=== PATIENT | female | born 1950 | race Caucasian/White ===

== ENCOUNTER 2017-03-02 15:02 | Inpatient (IN) | payer OTHER ==
[2017-03-02 17:51] LABS: BASOPHILS # (AUTO) 0.1 X10^3/uL (0.0-0.1); BASOPHILS % (AUTO) 0.8 % (0.2-1.0); EOSINOPHILS # (AUTO) 0.3 x10^3/uL (0.0-0.2); EOSINOPHILS % (AUTO) 3.5 % (0.9-2.9); LYMPHOCYTES # (AUTO) 1.9 X10^3/uL (1.3-2.9); LYMPHOCYTES % (AUTO) 21.3 % (21.0-51.0); MEAN CORPUSCULAR HEMOGLOBIN 31.1 pg (27.0-34.0); MEAN CORPUSCULAR VOLUME 88.7 fL (80.0-100.0); MEAN PLATELET VOLUME 8.9 fL (7.4-11.0); MONOCYTES % (AUTO) 11.5 % (0.0-13.0); NEUTROPHILS # (AUTO) 5.5 x10^3/uL (2.2-4.8); NEUTROPHILS % (AUTO) 62.9 % (42.0-75.0); PLATELET COUNT 135 X10^3/uL (150.0-450.0); RED CELL DISTRIBUTION WIDTH 12.8 % (11.6-16.5); WHITE BLOOD COUNT 8.7 X10^3/uL (3.6-10.0)
[2017-03-02 18:06] LABS: ALANINE AMINOTRANSFERASE 59 Units/L (12-78); ALBUMIN 3.9 g/dL (3.4-5.0); ALKALINE PHOSPHATASE 75 Units/L (46-116); ASPARTATE AMINO TRANSFERASE 37 Units/L (15-37); BLOOD UREA NITROGEN 13 mg/dL (7-18); CALCIUM 8.9 mg/dL (8.5-10.1); CARBON DIOXIDE 23.2 mmol/L (21-32); CHLORIDE 100 mmol/L (98-107); COR NA(FOR HYPERGLY) 140 mmol/L (136-145); CREATININE 0.99 mg/dL (0.55-1.02); SODIUM 136 mmol/L (136-145); TOTAL PROTEIN 7.7 g/dL (6.4-8.2); eGFR BLACK RACES > 60 (>60); eGFR NON BLACK RACES 60 (>60)
[2017-03-02] MEDS ORDERED: DUONEB 0.5 MG/3 MG ONE (18:10)
[2017-03-02] MEDS ORDERED: SALINE 3% 15 ML NEB TX ONE (18:13)
[2017-03-02] MEDS ORDERED: SALINE 3% 15 ML NEB TX NEB ONE (18:15)
[2017-03-02] MEDS: LEVAQUIN PREMIX IV 750 MG 750 MG/150 ML BAG IV SCH (18:26)
[2017-03-02] MEDS: ROBITUSSIN DM PO SCH ×2 (18:27→21:37)
[2017-03-02] MEDS: NS 1/2 500 ML IV 500 ML IV SCH (18:27)
[2017-03-02 18:32] VITALS: BMI 31.1
--- NOTE | 2017-03-02 18:37 | RAD ---
History: Cough Study: PA and lateral chest Comparison: None Findings: The lungs are clear and the heart and mediastinum are unremarkable. There is no edema or ef fusion or congestion. No bony abnormality is suggested. Impression: Negative Reported By:
[2017-03-02] MEDS: DUONEB 0.5 MG/3 MG NEB SCH ×2 (19:00→21:20)
[2017-03-03] MEDS: DUONEB 0.5 MG/3 MG NEB SCH ×6 (01:03→21:14)
[2017-03-03 05:44] LABS: BASOPHILS % (AUTO) 0.4 % (0.2-1.0); EOSINOPHILS # (AUTO) 0.1 x10^3/uL (0.0-0.2); EOSINOPHILS % (AUTO) 2.3 % (0.9-2.9); HEMATOCRIT 36.7 % (36.0-47.0); HEMOGLOBIN 12.9 g/dL (12.0-16.0); LYMPHOCYTES # (AUTO) 1.6 X10^3/uL (1.3-2.9); LYMPHOCYTES % (AUTO) 32.7 % (21.0-51.0); MEAN CORPUSCULAR HEMOGLOBIN 31.2 pg (27.0-34.0); MEAN CORPUSCULAR HGB CONC 35.1 g/dL (33.0-35.0); MEAN CORPUSCULAR VOLUME 88.8 fL (80.0-100.0); MEAN PLATELET VOLUME 9.4 fL (7.4-11.0); MONOCYTES # (AUTO) 0.8 x10^3/uL (0.3-0.8); MONOCYTES % (AUTO) 15.8 % (0.0-13.0); NEUTROPHILS # (AUTO) 2.4 x10^3/uL (2.2-4.8); NEUTROPHILS % (AUTO) 48.8 % (42.0-75.0); PLATELET COUNT 108 X10^3/uL (150.0-450.0); RED BLOOD COUNT 4.14 X10^6/uL (3.5-5.4); RED CELL DISTRIBUTION WIDTH 12.9 % (11.6-16.5); WHITE BLOOD COUNT 4.9 X10^3/uL (3.6-10.0)
[2017-03-03 05:55] LABS: ALANINE AMINOTRANSFERASE 52 Units/L (12-78); ALBUMIN 3.5 g/dL (3.4-5.0); ALKALINE PHOSPHATASE 74 Units/L (46-116); ASPARTATE AMINO TRANSFERASE 33 Units/L (15-37); BLOOD UREA NITROGEN 13 mg/dL (7-18); CALCIUM 8.7 mg/dL (8.5-10.1); CARBON DIOXIDE 24.2 mmol/L (21-32); CHLORIDE 104 mmol/L (98-107); COR NA(FOR HYPERGLY) 141 mmol/L (136-145); CREATININE 0.87 mg/dL (0.55-1.02); SODIUM 139 mmol/L (136-145); eGFR BLACK RACES > 60 (>60); eGFR NON BLACK RACES > 60 (>60)
[2017-03-03] MEDS ORDERED: POTASSIUM CHL 60 MEQ/NS 0.45% 500 ML IV PRN (06:31)
[2017-03-03] MEDS ORDERED: POTASSIUM CHL 40 MEQ/NS 0.45% 500 ML IV PRN (06:31)
[2017-03-03] MEDS ORDERED: MAGNESIUM SULFATE 1 GM/100 mL PREMIX 1 GM/100 ML BAG IV PRN (06:31)
[2017-03-03] MEDS ORDERED: K-RIDER 10 MEQ/NS 100 ML 10 MEQ/100 ML BAG IV PRN (06:31)
[2017-03-03] MEDS ORDERED: POTASSIUM CHLORIDE LIQ 20 MEQ UDC PO PRN (06:31)
[2017-03-03] MEDS ORDERED: K-LYTE EFFERVESCENT PO PRN (06:31)
--- NOTE | 2017-03-03 07:26 | RAD ---
Examination: Portable AP chest History: Cough, pneumonia Comparison 03/02/2017 Findings: Continued normal transverse heart diameter with clear lungs and pleural spaces. Impression: No change; no acute disease demonstrated. Reported By:
[2017-03-03] MEDS: ROBITUSSIN DM PO SCH ×4 (08:58→20:20)
[2017-03-03] MEDS: NS 1/2 500 ML IV 500 ML IV SCH ×2 (08:58→23:28)
[2017-03-03] MEDS: LEVAQUIN PREMIX IV 750 MG 750 MG/150 ML BAG IV SCH (10:00)
--- NOTE | 2017-03-03 14:15 | CT ---
History: Headache and pneumonia. Study: CT sinus without contrast. Comparison: CT head dated July 25, 2015. Technique: Multiple contiguous axial images of the sinuses without contrast. Coronal/sagittal reforma ts were obtained. Findings: Moderate mucosal thickening of the ethmoidal air cells. Mild mucosal thickening of the bila teral frontal sinuses. Small mucous retention cyst within the left sphenoid sinus. Remaining visualiz ed paranasal sinuses and mastoid air cells are clear. There is no nasal septum deviation. Obstruction of the right ostiomeatal unit and partial obstruction of the left ostiomeatal unit. Partial obstruct ion of the left frontoethmoidal recess. The right frontoethmoidal recess and bilateral sphenoethmoida l recesses are patent. The visualized lamina papyracea appear intact. The orbits are unremarkable. Th e visualized bones and surrounding soft tissues are unremarkable. Impression: Sinus disease as above. Reported By:
[2017-03-03] MEDS: FLONASE NASAL SPRAY ENOSTRIL SCH (16:02)
[2017-03-03] MEDS: ASTELIN NASAL SPRAY ENOSTRIL SCH ×2 (16:32→20:19)
[2017-03-03] MEDS: MAG-OX TAB PO PRN (19:27)
[2017-03-03] MEDS: TUSSIONEX PENNKINETIC SUSP PO PRN (20:17)
[2017-03-04] MEDS ORDERED: TYLENOL 325 MG TAB PO PRN (00:14)
[2017-03-04] MEDS ORDERED: TYLENOL 325 MG TAB PO ONE (00:41)
[2017-03-04] MEDS: DUONEB 0.5 MG/3 MG NEB SCH ×6 (01:25→21:20)
[2017-03-04 05:39] LABS: BASOPHILS % (AUTO) 0.5 % (0.2-1.0); EOSINOPHILS # (AUTO) 0.2 x10^3/uL (0.0-0.2); EOSINOPHILS % (AUTO) 2.7 % (0.9-2.9); HEMATOCRIT 38.3 % (36.0-47.0); HEMOGLOBIN 13.5 g/dL (12.0-16.0); LYMPHOCYTES # (AUTO) 1.7 X10^3/uL (1.3-2.9); LYMPHOCYTES % (AUTO) 20.4 % (21.0-51.0); MEAN CORPUSCULAR HEMOGLOBIN 31.2 pg (27.0-34.0); MEAN CORPUSCULAR HGB CONC 35.3 g/dL (33.0-35.0); MEAN CORPUSCULAR VOLUME 88.4 fL (80.0-100.0); MEAN PLATELET VOLUME 9.4 fL (7.4-11.0); MONOCYTES # (AUTO) 0.8 x10^3/uL (0.3-0.8); MONOCYTES % (AUTO) 9.6 % (0.0-13.0); NEUTROPHILS # (AUTO) 5.7 x10^3/uL (2.2-4.8); NEUTROPHILS % (AUTO) 66.8 % (42.0-75.0); PLATELET COUNT 121 X10^3/uL (150.0-450.0); RED BLOOD COUNT 4.33 X10^6/uL (3.5-5.4); RED CELL DISTRIBUTION WIDTH 13.1 % (11.6-16.5); WHITE BLOOD COUNT 8.5 X10^3/uL (3.6-10.0)
[2017-03-04 05:43] LABS: ALANINE AMINOTRANSFERASE 51 Units/L (12-78); ALBUMIN 3.7 g/dL (3.4-5.0); ALKALINE PHOSPHATASE 58 Units/L (46-116); ASPARTATE AMINO TRANSFERASE 34 Units/L (15-37); BLOOD UREA NITROGEN 13 mg/dL (7-18); CARBON DIOXIDE 23.7 mmol/L (21-32); CHLORIDE 102 mmol/L (98-107); COR NA(FOR HYPERGLY) 140 mmol/L (136-145); SODIUM 137 mmol/L (136-145); TOTAL PROTEIN 7.5 g/dL (6.4-8.2)
[2017-03-04 05:55] LABS: CALCIUM 8.7 mg/dL (8.5-10.1); eGFR BLACK RACES > 60 (>60); eGFR NON BLACK RACES > 60 (>60)
--- NOTE | 2017-03-04 06:59 | RAD ---
HISTORY: Follow-up pneumonia Study: Chest AP portable Comparison: 03/03/2017 Findings: The the heart is within normal limits in size. The marce are normal. The lungs are free of acute alveo lar infiltrates. There is minimal subsegmental atelectasis in the right lung base. No pleural effusio ns are identified. The bony thorax is unremarkable. IMPRESSION: Minimal subsegmental atelectasis right lung base Reported By:
[2017-03-04] MEDS: LEVAQUIN PREMIX IV 750 MG 750 MG/150 ML BAG IV SCH (08:11)
[2017-03-04] MEDS: ROBITUSSIN DM PO SCH ×5 (08:12→21:36)
[2017-03-04] MEDS: TUSSIONEX PENNKINETIC SUSP PO PRN ×2 (08:16→21:35)
[2017-03-04] MEDS: FLONASE NASAL SPRAY ENOSTRIL SCH ×2 (09:19→13:38)
[2017-03-04] MEDS: ASTELIN NASAL SPRAY ENOSTRIL SCH ×2 (09:19→21:35)
[2017-03-04] MEDS ORDERED: GLUCOPHAGE ONE (12:43)
[2017-03-04] MEDS: GLUCOPHAGE PO SCH (13:12)
[2017-03-04] MEDS: ZESTRIL TAB 5 MG PO SCH (13:12)
[2017-03-04] MEDS: CELEXA PO SCH (13:12)
[2017-03-04] MEDS: XANAX PO PRN (13:13)
[2017-03-04] MEDS: MOBIC TAB 15 MG PO SCH (13:17)
[2017-03-04] MEDS: SINGULAIR TAB 10 MG PO SCH (13:17)
[2017-03-04] MEDS: NS 1/2 500 ML IV 500 ML IV SCH (13:20)
[2017-03-04] MEDS ORDERED: PATIENT'S HOME MEDICATION (Levocetirizine Dihydrochloride [Levocetirizine Dihydrochloride] PO SCH (21:00)
[2017-03-04] MEDS: ZANAFLEX PO SCH (21:35)
[2017-03-04] MEDS: MAG-OX TAB PO PRN (21:35)
--- NOTE | 2017-03-04 21:54 | PCM.PROG ---
Progress Note - Progress Note for Day of Date: 03/04/17 - Subjective Subjective: WAS ADMITTED ON 03/02/2017 FOR BRONCHOPNEUMONISHA. A SINUS CT WAS OBTAINED ON 03/03/2017 AND REPORTED MODERATE MUCOSAL THICKENING OF THE ETHMOIDAL AIR CELLS. MILD MUCOSAL THICKENING OF THE BILATERAL FRONTAL SINUSES. SMALL MUCOUS RETENTION CYST WITHIN THE LEFT SPHENOID SINUS. OBSTRUCTION OF THE RIGHT OSTIOMEATAL UNIT AND PARTIAL OBSTRUCTION OF THE LEFT OSTIOMEATAL UNIT. PARTIAL OBSTRUCTION OF THE LEFT FRONTOETHMOIDAL RECESS. SHE WAS STARTED ON FLONASE AND ASTELIN NASAL SPRAYS YESTERDAY. TODAY, PATIENT IS ALERT AND ORIENTED, SITTING UP IN BED ON MORNING ROUNDS. SHE CONTINUES WITH COUGH, NASAL CONGESTION, AND SHORTNESS OF BREATH. ON EXAMINATION, HEART IS REGULAR IN RATE AND RHYTHM. BILATERAL LUNGS ARE NOTED WITH SCATTERED WHEEZING THROUGHOUT. SHE IS CURRENTLY UTILIZING OXYGEN VIA NASAL CANNULA AT 2L/MIN. ABDOMEN IS ROUND, SOFT, AND NON-TENDER WITH NORMAL BOWEL SOUNDS NOTED IN ALL QUADRANTS. PATIENT RAN A FEVER THROUGHOUT THE NIGHT. TEMPERATURE SPIKED TO 101.4 AT MIDNIGHT. VITALS THIS MORNING ARE 99.3-94-20-98%-128/57. LABS WERE OBTAINED THIS MORNING. ABNORMAL LAB VALUES INCLUDE THE FOLLOWING: GLUCOSE 212, MAGNESIUM 1.6. SPUTUM AND BLOOD CULTURES ARE PENDING. A CHEST XRAY WAS OBTAINED THIS MORNING AND REPORTS MINIMAL SUBSEGMENTAL ATELECTASIS RIGHT LUNG BASE. SHE IS CURRENTLY RECEIVING IV ANTIBIOTICS AND RESPIRATORY TREATMENTS. WE WILL CONTINUE WITH CURRENT PLAN OF CARE TODAY. OTHERWISE, WE WILL FOLLOW UP WITH AM LABS AND CONTINUE TO MONITOR PATIENT. - Past Medical Family Social History Past Med/Fam/Surg Hx: No changes since H&P Allergies: Allergies acetaminophen [From Tylenol] Allergy (Verified 03/04/17 00:46) aspirin Allergy (Verified 03/02/17 16:20) NSAIDS (Non-Steroidal Anti-Inflamma Allergy (Verified 03/02/17 16:20) - Review of Systems ROS: No change since H&P - Vital Signs and I&O's Vital Signs: Temperature 98.6 F Pulse Rate [Left Brachial] 91 Pulse Rate [Right Brachial] 94 Pulse Rate 90 Respiratory Rate 20 Blood Pressure [Left Arm] 123/56 Blood Pressure [Right Arm] 133/61 Blood Pressure 182/95 O2 Sat by Pulse Oximetry 96 Intake and Output: Intake & Output 0103/03/17 03/04/17 03/05/17 11:59 11:59 11:59 11:59 Intake Total 849 3175 1610 Balance 849 3175 1610 - Physical Exam Oriented: Normal Eyes: Normal Ear: Normal Nose: Other (NASAL CONGESTION ) Throat: Normal Respiratory: Right, Left, Generalized, Wheezes Cardiovascular: Normal : Normal Auscultation: Bowel Sounds: Normal Palpation: Normal Tenderness: Normal Skin: Normal Musculoskeletal: Normal Psychiatric: Normal Mood Description: Calm Affect: Normal Speech Pattern: Clear, Appropriate - Laboratory and Diagnostics Result Diagrams: 03/04/17 04:45 03/04/17 04:45 Labs: 03/02/17 17:46 Blood Blood Culture - Preliminary 03/02/17 17:41 Blood Blood Culture - Preliminary 03/02/17 19:33 Sputum - Expectorated Sputum Sputum Culture - Preliminary 03/02/17 19:33 Sputum - Expectorated Sputum - Final Laboratory WBC 8.5 X10^3/uL (3.6-10.0) 03/04/17 04:45 RBC 4.33 X10^6/uL (3.5-5.4) 03/04/17 04:45 Hgb 13.5 g/dL (12.0-16.0) 03/04/17 04:45 Hct 38.3 % (36.0-47.0) 03/04/17 04:45 MCV 88.4 fL (80.0-100.0) 03/04/17 04:45 MCH 31.2 pg (27.0-34.0) 03/04/17 04:45 MCHC 35.3 g/dL (33.0-35.0) H 03/04/17 04:45 RDW 13.1 % (11.6-16.5) 03/04/17 04:45 Plt Count 121 X10^3/uL (150.0-450.0) L 03/04/17 04:45 MPV 9.4 fL (7.4-11.0) 03/04/17 04:45 Neut % 66.8 % (42.0-75.0) 03/04/17 04:45 Lymph % 20.4 % (21.0-51.0) L 03/04/17 04:45 [place] % 9.6 % (0.0-13.0) 03/04/17 04:45 Eos % 2.7 % (0.9-2.9) 03/04/17 04:45 Baso % 0.5 % (0.2-1.0) 03/04/17 04:45 Neut # 5.7 x10^3/uL (2.2-4.8) H 03/04/17 04:45 Lymph # 1.7 X10^3/uL (1.3-2.9) 03/04/17 04:45 [place] # 0.8 x10^3/uL (0.3-0.8) 03/04/17 04:45 Eos # 0.2 x10^3/uL (0.0-0.2) 03/04/17 04:45 Baso # 0.0 X10^3/uL (0.0-0.1) 03/04/17 04:45 Absolute Nucleated RBC 0.0 /100WBC 03/04/17 04:45 Sodium 137 mmol/L (136-145) 03/04/17 04:45 Corrected Sodium 140 mmol/L (136-145) 03/04/17 04:45 Potassium 4.5 mmol/L (3.5-5.1) 03/04/17 04:45 Chloride 102 mmol/L (98-107) 03/04/17 04:45 Carbon Dioxide 23.7 mmol/L (21-32) 03/04/17 04:45 BUN 13 mg/dL (7-18) 03/04/17 04:45 Creatinine 0.90 mg/dL (0.55-1.02) 03/04/17 04:45 Est GFR (MDRD) Af Amer > 60 (>60) 03/04/17 04:45 Est GFR (MDRD) Non-Af > 60 (>60) 03/04/17 04:45 Glucose 212 mg/dL (65-99) H 03/04/17 04:45 POC Glucose (mg/dL) 142 mg/dL (65-99) H 03/04/17 20:03 Calcium 8.7 mg/dL (8.5-10.1) 03/04/17 04:45 Corrected Calcium TNP 03/04/17 04:45 Magnesium 1.6 mg/dL (1.7-2.9) L 03/04/17 04:45 Total Bilirubin 0.50 mg/dL (0.2-1.0) 03/04/17 04:45 AST 34 Units/L (15-37) 03/04/17 04:45 ALT 51 Units/L (12-78) 03/04/17 04:45 Alkaline Phosphatase 58 Units/L (46-116) 03/04/17 04:45 Total Protein 7.5 g/dL (6.4-8.2) 03/04/17 04:45 Albumin 3.7 g/dL (3.4-5.0) 03/04/17 04:45 Globulin 3.8 g/dL (2.5-4.5) 03/04/17 04:45 Albumin/Globulin Ratio 1.0 Ratio (1.1-2.1) L 03/04/17 04:45 - Plan (1) Bronchopneumonia Status: Acute Plan: CONTINUE PNEUMONIA PROTOCOL, CONTINUE LEVAQUIN AND RESPIRATORY TX, CONTINUE TO MONITOR LABS AND CHEST XRAY (2) Sinus disease Status: Acute Plan: CONTINUE ASTELIN AND FLONASE NASAL SPRAY, CONTINUE LEVAQUIN 750MG IV DAILY , CONTINUE TO MONITOR
[2017-03-05] MEDS: DUONEB 0.5 MG/3 MG NEB SCH ×6 (01:51→20:02)
[2017-03-05 05:41] LABS: BASOPHILS % (AUTO) 0.5 % (0.2-1.0); EOSINOPHILS # (AUTO) 0.3 x10^3/uL (0.0-0.2); EOSINOPHILS % (AUTO) 5.6 % (0.9-2.9); HEMATOCRIT 35.9 % (36.0-47.0); HEMOGLOBIN 12.4 g/dL (12.0-16.0); LYMPHOCYTES # (AUTO) 2.2 X10^3/uL (1.3-2.9); LYMPHOCYTES % (AUTO) 37.4 % (21.0-51.0); MEAN CORPUSCULAR HEMOGLOBIN 30.7 pg (27.0-34.0); MEAN CORPUSCULAR HGB CONC 34.6 g/dL (33.0-35.0); MEAN CORPUSCULAR VOLUME 88.8 fL (80.0-100.0); MEAN PLATELET VOLUME 9.6 fL (7.4-11.0); MONOCYTES # (AUTO) 0.7 x10^3/uL (0.3-0.8); MONOCYTES % (AUTO) 12.9 % (0.0-13.0); NEUTROPHILS # (AUTO) 2.5 x10^3/uL (2.2-4.8); NEUTROPHILS % (AUTO) 43.6 % (42.0-75.0); PLATELET COUNT 108 X10^3/uL (150.0-450.0); RED BLOOD COUNT 4.04 X10^6/uL (3.5-5.4); RED CELL DISTRIBUTION WIDTH 13.1 % (11.6-16.5); WHITE BLOOD COUNT 5.8 X10^3/uL (3.6-10.0)
[2017-03-05] MEDS: NS 1/2 500 ML IV 500 ML IV SCH ×3 (05:51→19:26)
[2017-03-05 06:04] LABS: ALANINE AMINOTRANSFERASE 48 Units/L (12-78); ALBUMIN 3.3 g/dL (3.4-5.0); ALKALINE PHOSPHATASE 55 Units/L (46-116); ASPARTATE AMINO TRANSFERASE 36 Units/L (15-37); BLOOD UREA NITROGEN 16 mg/dL (7-18); CALCIUM 8.8 mg/dL (8.5-10.1); CARBON DIOXIDE 26.1 mmol/L (21-32); CHLORIDE 102 mmol/L (98-107); COR CA(FOR HYPOALB) 9.4 mg/dL (8.5-10.1); COR NA(FOR HYPERGLY) 138 mmol/L (136-145); CREATININE 0.81 mg/dL (0.55-1.02); SODIUM 137 mmol/L (136-145); TOTAL PROTEIN 6.7 g/dL (6.4-8.2); eGFR BLACK RACES > 60 (>60); eGFR NON BLACK RACES > 60 (>60)
[2017-03-05 08:08] LABS: BILIRUBIN,URINE NEGATIVE (NEGATIVE); BLOOD/HEMOGLOBIN,URINE NEGATIVE (NEGATIVE); GLUCOSE, URINE NEGATIVE (NEGATIVE); KETONES,URINE NEGATIVE (NEGATIVE); LEUKOCYTE ESTERASE ,URINE 1+ (NEGATIVE); NITRITES,URINE NEGATIVE (NEGATIVE); PROTEIN,URINE NEGATIVE (NEGATIVE); UROBILINOGEN,URINE NORMAL (NORMAL)
[2017-03-05 08:27] LABS: APPEARANCE,URINE CLEAR (CLEAR); BACTERIA,URINE NEGATIVE /HPF (NEGATIVE); COLOR,URINE YELLOW (YELLOW); RBC,URINE NEG /HPF (NEGATIVE); SQUAMOUS EPITHELIAL CELL,UR NEGATIVE /HPF (NEGATIVE)
[2017-03-05] MEDS ORDERED: GLUCOPHAGE ONE (09:04)
[2017-03-05] MEDS ORDERED: ASTELIN NASAL SPRAY ENOSTRIL ONE (09:06)
[2017-03-05] MEDS: ROBITUSSIN DM PO SCH ×4 (09:13→21:15)
[2017-03-05] MEDS: FLONASE NASAL SPRAY ENOSTRIL SCH (09:13)
[2017-03-05] MEDS: ASTELIN NASAL SPRAY ENOSTRIL SCH ×2 (09:13→21:14)
[2017-03-05] MEDS: CELEXA PO SCH (09:14)
[2017-03-05] MEDS: MOBIC TAB 15 MG PO SCH (09:14)
[2017-03-05] MEDS: SINGULAIR TAB 10 MG PO SCH (09:14)
[2017-03-05] MEDS: GLUCOPHAGE PO SCH (09:14)
[2017-03-05] MEDS: LEVAQUIN PREMIX IV 750 MG 750 MG/150 ML BAG IV SCH (09:14)
[2017-03-05] MEDS: ZESTRIL TAB 5 MG PO SCH (09:14)
[2017-03-05] MEDS: TUSSIONEX PENNKINETIC SUSP PO PRN ×2 (09:20→21:14)
[2017-03-05] MEDS: SNACK - Diabetic Appropriate PO SCH ×2 (10:47→21:15)
--- NOTE | 2017-03-05 11:10 | RAD ---
HISTORY: Pneumonia. Cough. Study: PA and lateral chest Comparison: 03/04/2017 Findings: Low volume inspiration is noted. Minimal subsegmental atelectasis/infiltrate is present in the right lung. Otherwise the heart, lungs, mediastinum and bony structures are normal for the patient's age. IMPRESSION: 1. Minimal subsegmental atelectasis/infiltrate in the right lung base. Reported By:
[2017-03-05] MEDS: XANAX PO PRN (21:13)
[2017-03-05] MEDS: ZANAFLEX PO SCH (21:13)
[2017-03-06] MEDS: DUONEB 0.5 MG/3 MG NEB SCH ×6 (00:56→20:23)
--- NOTE | 2017-03-06 01:11 | PCM.PROG ---
Progress Note - Progress Note for Day of Date: 03/05/17 - Subjective Subjective: WAS ADMITTED ON 03/02/2017 FOR BRONCHOPNEUMONIA. SHE WAS FOUND TO HAVE SINUS DISEASE. SHE WAS STARTED ON FLONASE AND ASTELIN NASAL SPRAYS ON THURSDAY. TODAY, PATIENT IS ALERT AND ORIENTED, SITTING UP IN BED ON MORNING ROUNDS. SHE CONTINUES WITH PERSISTENT COUGH, NASAL CONGESTION, AND SHORTNESS OF BREATH. ON EXAMINATION, HEART IS REGULAR IN RATE AND RHYTHM. BILATERAL LUNGS CONTINUE WITH SCATTERED WHEEZING THROUGHOUT. SHE IS CURRENTLY UTILIZING OXYGEN VIA NASAL CANNULA AT 2L/MIN. ABDOMEN IS ROUND, SOFT, AND NON- TENDER WITH NORMAL BOWEL SOUNDS NOTED IN ALL QUADRANTS. SHE HAS BEEN AFEBRILE THROUGHOUT THE NIGHT. VITALS THIS MORNING ARE 98.5-77-20-96%-129/60. LABS WERE OBTAINED THIS MORNING. ABNORMAL LAB VALUES INCLUDE THE FOLLOWING: HCT 35.9, GLUCOSE 151, ALBUMIN 3.3. SPUTUM AND BLOOD CULTURES ARE PENDING. A CHEST XRAY WAS OBTAINED THIS MORNING AND REPORTS MINIMAL SUBSEGMENTAL ATELECTASIS/ INFILTRATE IN THE RIGHT LUNG BASE. SHE CONTINUES TO RECEIVE IV ANTIBIOTICS AND RESPIRATORY TREATMENTS. WE WILL CONTINUE WITH CURRENT PLAN OF CARE TODAY. OTHERWISE, WE WILL FOLLOW UP WITH AM LABS AND CONTINUE TO MONITOR PATIENT. - Past Medical Family Social History Past Med/Fam/Surg Hx: No changes since H&P Allergies: Allergies acetaminophen [From Tylenol] Allergy (Verified 03/04/17 00:46) aspirin Allergy (Verified 03/02/17 16:20) NSAIDS (Non-Steroidal Anti-Inflamma Allergy (Verified 03/02/17 16:20) - Review of Systems ROS: No change since H&P - Vital Signs and I&O's Vital Signs: Temperature 97.8 F Pulse Rate [Left Brachial] 74 Pulse Rate [Right Brachial] 94 Pulse Rate 68 Respiratory Rate 18 Blood Pressure [Left Arm] 112/52 Blood Pressure [Right Arm] 142/71 Blood Pressure 182/95 O2 Sat by Pulse Oximetry 95 Intake and Output: Intake & Output 03/03/17 03/04/17 03/05/17 03/06/17 11:59 11:59 11:59 11:59 Intake Total 849 3175 3110 1887 Output Total 1000 Balance 849 3175 3110 887 - Physical Exam Oriented: Normal Eyes: Normal Ear: Normal Nose: Other (NASAL CONGESTION ) Throat: Normal Respiratory: Right, Left, Generalized, Wheezes Cardiovascular: Normal : Normal Auscultation: Bowel Sounds: Normal Palpation: Normal Tenderness: Normal Skin: Normal Musculoskeletal: Normal Psychiatric: Normal Mood Description: Calm Affect: Normal Speech Pattern: Clear, Appropriate - Laboratory and Diagnostics Result Diagrams: 03/05/17 04:50 03/05/17 04:50 Labs: 03/05/17 09:13 Sputum - Expectorated Sputum - Final 03/02/17 19:33 Sputum - Expectorated Sputum Sputum Culture - Final 03/02/17 19:33 Sputum - Expectorated Sputum - Final 03/02/17 17:46 Blood Blood Culture - Preliminary 03/02/17 17:41 Blood Blood Culture - Preliminary Laboratory WBC 5.8 X10^3/uL (3.6-10.0) 03/05/17 04:50 RBC 4.04 X10^6/uL (3.5-5.4) 03/05/17 04:50 Hgb 12.4 g/dL (12.0-16.0) 03/05/17 04:50 Hct 35.9 % (36.0-47.0) L 03/05/17 04:50 MCV 88.8 fL (80.0-100.0) 03/05/17 04:50 MCH 30.7 pg (27.0-34.0) 03/05/17 04:50 MCHC 34.6 g/dL (33.0-35.0) 03/05/17 04:50 RDW 13.1 % (11.6-16.5) 03/05/17 04:50 Plt Count 108 X10^3/uL (150.0-450.0) L 03/05/17 04:50 MPV 9.6 fL (7.4-11.0) 03/05/17 04:50 Neut % 43.6 % (42.0-75.0) 03/05/17 04:50 Lymph % 37.4 % (21.0-51.0) 03/05/17 04:50 [place] % 12.9 % (0.0-13.0) 03/05/17 04:50 Eos % 5.6 % (0.9-2.9) H 03/05/17 04:50 Baso % 0.5 % (0.2-1.0) 03/05/17 04:50 Neut # 2.5 x10^3/uL (2.2-4.8) 03/05/17 04:50 Lymph # 2.2 X10^3/uL (1.3-2.9) 03/05/17 04:50 [place] # 0.7 x10^3/uL (0.3-0.8) 03/05/17 04:50 Eos # 0.3 x10^3/uL (0.0-0.2) H 03/05/17 04:50 Baso # 0.0 X10^3/uL (0.0-0.1) 03/05/17 04:50 Absolute Nucleated RBC 0.0 /100WBC 03/05/17 04:50 Sodium 137 mmol/L (136-145) 03/05/17 04:50 Corrected Sodium 138 mmol/L (136-145) 03/05/17 04:50 Potassium 3.9 mmol/L (3.5-5.1) 03/05/17 04:50 Chloride 102 mmol/L (98-107) 03/05/17 04:50 Carbon Dioxide 26.1 mmol/L (21-32) 03/05/17 04:50 BUN 16 mg/dL (7-18) 03/05/17 04:50 Creatinine 0.81 mg/dL (0.55-1.02) 03/05/17 04:50 Est GFR (MDRD) Af Amer > 60 (>60) 03/05/17 04:50 Est GFR (MDRD) Non-Af > 60 (>60) 03/05/17 04:50 Glucose 151 mg/dL (65-99) H 03/05/17 04:50 POC Glucose (mg/dL) 159 mg/dL (65-99) H 03/05/17 19:50 Lactic Acid 1.3 mmol/L (0.4-2.0) 03/05/17 07:45 Calcium 8.8 mg/dL (8.5-10.1) 03/05/17 04:50 Corrected Calcium 9.4 mg/dL (8.5-10.1) 03/05/17 04:50 Magnesium 1.9 mg/dL (1.7-2.9) 03/05/17 04:50 Total Bilirubin 0.50 mg/dL (0.2-1.0) 03/05/17 04:50 AST 36 Units/L (15-37) 03/05/17 04:50 ALT 48 Units/L (12-78) 03/05/17 04:50 Alkaline Phosphatase 55 Units/L (46-116) 03/05/17 04:50 Total Protein 6.7 g/dL (6.4-8.2) 03/05/17 04:50 Albumin 3.3 g/dL (3.4-5.0) L 03/05/17 04:50 Globulin 3.4 g/dL (2.5-4.5) 03/05/17 04:50 Albumin/Globulin Ratio 1.0 Ratio (1.1-2.1) L 03/05/17 04:50 Specimen Type Clean catch urine 03/05/17 07:59 Urine Color Yellow (YELLOW) 03/05/17 07:59 Urine Appearance Clear (CLEAR) 03/05/17 07:59 Urine pH 5.0 (5.0 - 8.0) 03/05/17 07:59 Ur Specific [place] 1.015 (1.000-1.030) 03/05/17 07:59 Urine Protein Negative (NEGATIVE) 03/05/17 07:59 Urine Glucose (UA) Negative (NEGATIVE) 03/05/17 07:59 Urine Ketones Negative (NEGATIVE) 03/05/17 07:59 Urine Occult Blood Negative (NEGATIVE) 03/05/17 07:59 Urine Nitrite Negative (NEGATIVE) 03/05/17 07:59 Urine Bilirubin Negative (NEGATIVE) 03/05/17 07:59 Urine Urobilinogen Normal (NORMAL) 03/05/17 07:59 Ur Leukocyte Esterase 1+ (NEGATIVE) 03/05/17 07:59 Urine RBC Neg /HPF (NEGATIVE) 03/05/17 07:59 Urine WBC 0-1 /HPF (NEGATIVE) 03/05/17 07:59 Ur Squamous Epith Cells Negative /HPF (NEGATIVE) 03/05/17 07:59 Urine Bacteria Negative /HPF (NEGATIVE) 03/05/17 07:59 Ur Culture Indicated? No/not indicated 03/05/17 07:59 - Plan (1) Bronchopneumonia Status: Acute Plan: CONTINUE PNEUMONIA PROTOCOL, CONTINUE LEVAQUIN AND RESPIRATORY TX, CONTINUE TO MONITOR LABS AND CHEST XRAY (2) Sinus disease Status: Acute Plan: CONTINUE ASTELIN AND FLONASE NASAL SPRAY, CONTINUE LEVAQUIN 750MG IV DAILY , CONTINUE TO MONITOR
[2017-03-06] MEDS: NS 1/2 500 ML IV 500 ML IV SCH ×2 (04:25→21:33)
[2017-03-06 05:11] LABS: BASOPHILS % (AUTO) 0.6 % (0.2-1.0); EOSINOPHILS # (AUTO) 0.3 x10^3/uL (0.0-0.2); EOSINOPHILS % (AUTO) 4.9 % (0.9-2.9); HEMATOCRIT 35.4 % (36.0-47.0); HEMOGLOBIN 12.4 g/dL (12.0-16.0); LYMPHOCYTES # (AUTO) 2.9 X10^3/uL (1.3-2.9); LYMPHOCYTES % (AUTO) 44.4 % (21.0-51.0); MEAN CORPUSCULAR VOLUME 88.5 fL (80.0-100.0); MEAN PLATELET VOLUME 9.4 fL (7.4-11.0); MONOCYTES # (AUTO) 0.8 x10^3/uL (0.3-0.8); MONOCYTES % (AUTO) 11.7 % (0.0-13.0); NEUTROPHILS # (AUTO) 2.5 x10^3/uL (2.2-4.8); NEUTROPHILS % (AUTO) 38.4 % (42.0-75.0); PLATELET COUNT 109 X10^3/uL (150.0-450.0); RED CELL DISTRIBUTION WIDTH 12.8 % (11.6-16.5); WHITE BLOOD COUNT 6.4 X10^3/uL (3.6-10.0)
[2017-03-06 05:17] LABS: ALANINE AMINOTRANSFERASE 49 Units/L (12-78); ALBUMIN 3.3 g/dL (3.4-5.0); ALKALINE PHOSPHATASE 65 Units/L (46-116); ASPARTATE AMINO TRANSFERASE 40 Units/L (15-37); BLOOD UREA NITROGEN 19 mg/dL (7-18); CALCIUM 8.9 mg/dL (8.5-10.1); CARBON DIOXIDE 25.4 mmol/L (21-32); CHLORIDE 101 mmol/L (98-107); COR CA(FOR HYPOALB) 9.5 mg/dL (8.5-10.1); COR NA(FOR HYPERGLY) 138 mmol/L (136-145); CREATININE 0.81 mg/dL (0.55-1.02); SODIUM 136 mmol/L (136-145); eGFR BLACK RACES > 60 (>60); eGFR NON BLACK RACES > 60 (>60)
--- NOTE | 2017-03-06 06:47 | RAD ---
HISTORY: Cough Study: Chest AP portable Comparison: 03/05/2017 Findings: The heart is within normal limits in size. The marce are normal. The lungs are free of acute alveolar infiltrates. Minimal subsegmental atelectasis is present in the right lung base. No pleural effusions are identified. The bony thorax is unremarkable. IMPRESSION: Minimal subsegmental atelectasis right lung base Reported By:
[2017-03-06] MEDS ORDERED: GLUCOPHAGE ONE (08:33)
[2017-03-06] MEDS: MOBIC TAB 15 MG PO SCH (08:53)
[2017-03-06] MEDS: ZESTRIL TAB 5 MG PO SCH (08:53)
[2017-03-06] MEDS: SINGULAIR TAB 10 MG PO SCH (08:53)
[2017-03-06] MEDS: CELEXA PO SCH (08:54)
[2017-03-06] MEDS: GLUCOPHAGE PO SCH (08:54)
[2017-03-06] MEDS: LEVAQUIN PREMIX IV 750 MG 750 MG/150 ML BAG IV SCH (08:54)
[2017-03-06] MEDS: ASTELIN NASAL SPRAY ENOSTRIL SCH ×2 (08:55→21:29)
[2017-03-06] MEDS: TUSSIONEX PENNKINETIC SUSP PO PRN ×2 (09:01→21:28)
[2017-03-06] MEDS: ROBITUSSIN DM PO SCH ×4 (09:05→21:29)
[2017-03-06] MEDS: FLONASE NASAL SPRAY ENOSTRIL SCH (09:05)
[2017-03-06] MEDS ORDERED: NS 1/2 1000 ML IV 1,000 ML IV ONE (14:54)
--- NOTE | 2017-03-06 21:26 | PCM.PROG ---
Progress Note - Progress Note for Day of Date: 03/06/17 - Subjective Subjective: WAS ADMITTED ON 03/02/2017 FOR BRONCHOPNEUMONIA. SHE IS ALSO BEING TREATED FOR SINUS DISEASE. TODAY, PATIENT IS ALERT AND ORIENTED, SITTING UP IN BED ON MORNING ROUNDS. SHE CONTINUES WITH PERSISTENT COUGH, NASAL CONGESTION, AND SHORTNESS OF BREATH, SLIGHTLY IMPROVED SINCE YESTERDAY. ON EXAMINATION, HEART IS REGULAR IN RATE AND RHYTHM. BILATERAL LUNGS CONTINUE WITH SCATTERED WHEEZING THROUGHOUT. SHE IS CURRENTLY UTILIZING OXYGEN VIA NASAL CANNULA AT 2L/MIN. ABDOMEN IS ROUND, SOFT, AND NON-TENDER WITH NORMAL BOWEL SOUNDS NOTED IN ALL QUADRANTS. SHE CONTINUES TO BE AFEBRILE. VITALS THIS MORNING ARE 98.4-86-20-97%-119/58. LABS WERE OBTAINED THIS MORNING. SHE REMAINS HEMODYNAMICALLY STABLE TODAY. SPUTUM AND BLOOD CULTURES ARE PENDING RESULTS. A URINE CULTURE IS ALSO PENDING. PRELIMINARY RESULTS REPORT GROWTH OF GRAM NEGATIVE RODS. A CHEST XRAY WAS OBTAINED THIS MORNING AND REPORTS MINIMAL SUBSEGMENTAL ATELECTASIS IN THE RIGHT LUNG BASE. SHE CONTINUES TO RECEIVE IV ANTIBIOTICS AND RESPIRATORY TREATMENTS. WE WILL CONTINUE WITH CURRENT PLAN OF CARE TODAY WHILE WE AWAIT CULTURE REPORTS. OTHERWISE, WE WILL FOLLOW UP WITH AM LABS AND CONTINUE TO MONITOR PATIENT. - Past Medical Family Social History Past Med/Fam/Surg Hx: No changes since H&P Allergies: Allergies acetaminophen [From Tylenol] Allergy (Verified 03/04/17 00:46) aspirin Allergy (Verified 03/02/17 16:20) NSAIDS (Non-Steroidal Anti-Inflamma Allergy (Verified 03/02/17 16:20) - Review of Systems ROS: No change since H&P - Vital Signs and I&O's Vital Signs: Temperature 98.4 F Pulse Rate [Left Brachial] 77 Pulse Rate [Right Brachial] 94 Pulse Rate 67 Respiratory Rate 20 Blood Pressure [Left Arm] 123/70 Blood Pressure [Right Arm] 119/58 Blood Pressure 182/95 O2 Sat by Pulse Oximetry 93 Intake and Output: Intake & Output 03/04/17 03/05/17 03/06/17 03/07/17 11:59 11:59 11:59 11:59 Intake Total 3175 3110 3067 560 Output Total 2049 Balance 3175 3110 1017 560 - Physical Exam Oriented: Normal Eyes: Normal Ear: Normal Nose: Other (NASAL CONGESTION ) Throat: Normal Respiratory: Right, Left, Generalized, Wheezes Cardiovascular: Normal : Normal Auscultation: Bowel Sounds: Normal Palpation: Normal Tenderness: Normal Skin: Normal Musculoskeletal: Normal Psychiatric: Normal Mood Description: Calm Affect: Normal Speech Pattern: Clear, Appropriate - Laboratory and Diagnostics Result Diagrams: 03/06/17 04:25 03/06/17 04:25 Labs: 03/05/17 09:13 Sputum - Expectorated Sputum Sputum Culture - Preliminary 03/05/17 09:13 Sputum - Expectorated Sputum - Final 03/05/17 07:59 Urine,Clean Catch Urine Culture - Preliminary 03/04/17 00:40 Blood Blood Culture - Preliminary 03/04/17 00:45 Blood Blood Culture - Preliminary 03/02/17 19:33 Sputum - Expectorated Sputum Sputum Culture - Final 03/02/17 19:33 Sputum - Expectorated Sputum - Final 03/02/17 17:46 Blood Blood Culture - Preliminary 03/02/17 17:41 Blood Blood Culture - Preliminary Laboratory WBC 6.4 X10^3/uL (3.6-10.0) 03/06/17 04:25 RBC 4.00 X10^6/uL (3.5-5.4) 03/06/17 04:25 Hgb 12.4 g/dL (12.0-16.0) 03/06/17 04:25 Hct 35.4 % (36.0-47.0) L 03/06/17 04:25 MCV 88.5 fL (80.0-100.0) 03/06/17 04:25 MCH 31.0 pg (27.0-34.0) 03/06/17 04:25 MCHC 35.0 g/dL (33.0-35.0) 03/06/17 04:25 RDW 12.8 % (11.6-16.5) 03/06/17 04:25 Plt Count 109 X10^3/uL (150.0-450.0) L 03/06/17 04:25 MPV 9.4 fL (7.4-11.0) 03/06/17 04:25 Neut % 38.4 % (42.0-75.0) L 03/06/17 04:25 Lymph % 44.4 % (21.0-51.0) 03/06/17 04:25 [place] % 11.7 % (0.0-13.0) 03/06/17 04:25 Eos % 4.9 % (0.9-2.9) H 03/06/17 04:25 Baso % 0.6 % (0.2-1.0) 03/06/17 04:25 Neut # 2.5 x10^3/uL (2.2-4.8) 03/06/17 04:25 Lymph # 2.9 X10^3/uL (1.3-2.9) 03/06/17 04:25 [place] # 0.8 x10^3/uL (0.3-0.8) 03/06/17 04:25 Eos # 0.3 x10^3/uL (0.0-0.2) H 03/06/17 04:25 Baso # 0.0 X10^3/uL (0.0-0.1) 03/06/17 04:25 Absolute Nucleated RBC 0.1 /100WBC 03/06/17 04:25 Sodium 136 mmol/L (136-145) 03/06/17 04:25 Corrected Sodium 138 mmol/L (136-145) 03/06/17 04:25 Potassium 4.0 mmol/L (3.5-5.1) 03/06/17 04:25 Chloride 101 mmol/L (98-107) 03/06/17 04:25 Carbon Dioxide 25.4 mmol/L (21-32) 03/06/17 04:25 BUN 19 mg/dL (7-18) H 03/06/17 04:25 Creatinine 0.81 mg/dL (0.55-1.02) 03/06/17 04:25 Est GFR (MDRD) Af Amer > 60 (>60) 03/06/17 04:25 Est GFR (MDRD) Non-Af > 60 (>60) 03/06/17 04:25 Glucose 175 mg/dL (65-99) H 03/06/17 04:25 POC Glucose (mg/dL) 136 mg/dL (65-99) H 03/06/17 16:43 Lactic Acid 1.3 mmol/L (0.4-2.0) 03/05/17 07:45 Calcium 8.9 mg/dL (8.5-10.1) 03/06/17 04:25 Corrected Calcium 9.5 mg/dL (8.5-10.1) 03/06/17 04:25 Magnesium 1.9 mg/dL (1.7-2.9) 03/05/17 04:50 Total Bilirubin 0.40 mg/dL (0.2-1.0) 03/06/17 04:25 AST 40 Units/L (15-37) H 03/06/17 04:25 ALT 49 Units/L (12-78) 03/06/17 04:25 Alkaline Phosphatase 65 Units/L (46-116) 03/06/17 04:25 Total Protein 7.0 g/dL (6.4-8.2) 03/06/17 04:25 Albumin 3.3 g/dL (3.4-5.0) L 03/06/17 04:25 Globulin 3.7 g/dL (2.5-4.5) 03/06/17 04:25 Albumin/Globulin Ratio 0.9 Ratio (1.1-2.1) L 03/06/17 04:25 Specimen Type Clean catch urine 03/05/17 07:59 Urine Color Yellow (YELLOW) 03/05/17 07:59 Urine Appearance Clear (CLEAR) 03/05/17 07:59 Urine pH 5.0 (5.0 - 8.0) 03/05/17 07:59 Ur Specific [place] 1.015 (1.000-1.030) 03/05/17 07:59 Urine Protein Negative (NEGATIVE) 03/05/17 07:59 Urine Glucose (UA) Negative (NEGATIVE) 03/05/17 07:59 Urine Ketones Negative (NEGATIVE) 03/05/17 07:59 Urine Occult Blood Negative (NEGATIVE) 03/05/17 07:59 Urine Nitrite Negative (NEGATIVE) 03/05/17 07:59 Urine Bilirubin Negative (NEGATIVE) 03/05/17 07:59 Urine Urobilinogen Normal (NORMAL) 03/05/17 07:59 Ur Leukocyte Esterase 1+ (NEGATIVE) 03/05/17 07:59 Urine RBC Neg /HPF (NEGATIVE) 03/05/17 07:59 Urine WBC 0-1 /HPF (NEGATIVE) 03/05/17 07:59 Ur Squamous Epith Cells Negative /HPF (NEGATIVE) 03/05/17 07:59 Urine Bacteria Negative /HPF (NEGATIVE) 03/05/17 07:59 Ur Culture Indicated? No/not indicated 03/05/17 07:59 - Plan (1) Bronchopneumonia Status: Acute Plan: CONTINUE PNEUMONIA PROTOCOL, CONTINUE LEVAQUIN AND RESPIRATORY TX, CONTINUE TO MONITOR LABS AND CHEST XRAY (2) Sinus disease Status: Acute Plan: CONTINUE ASTELIN AND FLONASE NASAL SPRAY, CONTINUE LEVAQUIN 750MG IV DAILY , CONTINUE TO MONITOR (3) Depression Status: Chronic Qualifiers: Depression Type: major depressive disorder Major depression recurrence: recurrent Active/Remission status: remission status unspecified Qualified Code(s): F33.9 - Major depressive disorder, recurrent, unspecified Plan: CONTINUE CELEXA, CONTINUE XANAX, CONTINUE TO MONITOR (4) Hypertension Status: Chronic Qualifiers: Hypertension type: essential hypertension Qualified Code(s): I10 - Essential (primary) hypertension Plan: CONTINUE LISINOPRIL, CONTINUE TO MONITOR (5) Diabetes Status: Chronic Qualifiers: Diabetes mellitus type: type 2 Diabetes mellitus complication status: without complication 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
[2017-03-06] MEDS: XANAX PO PRN (21:28)
[2017-03-06] MEDS: ZANAFLEX PO SCH (21:28)
[2017-03-06] MEDS: SNACK - Diabetic Appropriate PO SCH (21:29)
[2017-03-07] MEDS: DUONEB 0.5 MG/3 MG NEB SCH ×6 (00:22→21:04)
[2017-03-07] MEDS ORDERED: NS 1/2 1000 ML IV 1,000 ML IV ONE ×2 (03:00→16:50)
[2017-03-07 06:11] LABS: BASOPHILS % (AUTO) 0.5 % (0.2-1.0); EOSINOPHILS # (AUTO) 0.3 x10^3/uL (0.0-0.2); EOSINOPHILS % (AUTO) 3.4 % (0.9-2.9); HEMATOCRIT 38.4 % (36.0-47.0); HEMOGLOBIN 13.2 g/dL (12.0-16.0); LYMPHOCYTES # (AUTO) 3.6 X10^3/uL (1.3-2.9); LYMPHOCYTES % (AUTO) 42.3 % (21.0-51.0); MEAN CORPUSCULAR HEMOGLOBIN 30.4 pg (27.0-34.0); MEAN CORPUSCULAR HGB CONC 34.3 g/dL (33.0-35.0); MEAN CORPUSCULAR VOLUME 88.6 fL (80.0-100.0); MEAN PLATELET VOLUME 9.5 fL (7.4-11.0); MONOCYTES # (AUTO) 0.9 x10^3/uL (0.3-0.8); MONOCYTES % (AUTO) 11.1 % (0.0-13.0); NEUTROPHILS # (AUTO) 3.6 x10^3/uL (2.2-4.8); NEUTROPHILS % (AUTO) 42.7 % (42.0-75.0); PLATELET COUNT 140 X10^3/uL (150.0-450.0); RED BLOOD COUNT 4.33 X10^6/uL (3.5-5.4); RED CELL DISTRIBUTION WIDTH 12.9 % (11.6-16.5); WHITE BLOOD COUNT 8.5 X10^3/uL (3.6-10.0)
[2017-03-07 06:33] LABS: ALANINE AMINOTRANSFERASE 59 Units/L (12-78); ALBUMIN 3.6 g/dL (3.4-5.0); ALKALINE PHOSPHATASE 70 Units/L (46-116); ASPARTATE AMINO TRANSFERASE 40 Units/L (15-37); BLOOD UREA NITROGEN 17 mg/dL (7-18); CARBON DIOXIDE 23.8 mmol/L (21-32); CHLORIDE 102 mmol/L (98-107); COR NA(FOR HYPERGLY) 139 mmol/L (136-145); CREATININE 0.86 mg/dL (0.55-1.02); SODIUM 137 mmol/L (136-145); TOTAL PROTEIN 7.4 g/dL (6.4-8.2); eGFR BLACK RACES > 60 (>60); eGFR NON BLACK RACES > 60 (>60)
[2017-03-07] MEDS: NS 1/2 500 ML IV 500 ML IV SCH ×3 (06:52→16:53)
--- NOTE | 2017-03-07 07:43 | RAD ---
HISTORY: Shortness of breath Study: Single view of the chest. Comparison: 03/06/2017 Findings: The cardiomediastinal silhouette is normal. No focal consolidations, pleural effusions or pneumothora x. Osseous structures demonstrate no acute abnormality. IMPRESSION: 1. No acute cardiopulmonary process. Reported By:
[2017-03-07] MEDS ORDERED: GLUCOPHAGE ONE (07:50)
[2017-03-07] MEDS: LEVAQUIN PREMIX IV 750 MG 750 MG/150 ML BAG IV SCH (08:18)
[2017-03-07] MEDS: ZESTRIL TAB 5 MG PO SCH (08:19)
[2017-03-07] MEDS: SINGULAIR TAB 10 MG PO SCH (08:19)
[2017-03-07] MEDS: GLUCOPHAGE PO SCH (08:19)
[2017-03-07] MEDS: MOBIC TAB 15 MG PO SCH (08:19)
[2017-03-07] MEDS: FLONASE NASAL SPRAY ENOSTRIL SCH (08:20)
[2017-03-07] MEDS: CELEXA PO SCH (08:20)
[2017-03-07] MEDS: ASTELIN NASAL SPRAY ENOSTRIL SCH ×2 (08:20→21:28)
[2017-03-07] MEDS: ROBITUSSIN DM PO SCH ×4 (09:07→21:27)
[2017-03-07] MEDS: MUCOMYST 20% 200 MG/ML NEB SCH (11:57)
[2017-03-07] MEDS: TORADOL 30 MG VIAL IVP SCH ×3 (12:03→21:30)
[2017-03-07] MEDS: AUGMENTIN 875 MG/125 MG TAB PO SCH ×2 (12:04→22:33)
--- NOTE | 2017-03-07 16:22 | PCM.PROG ---
Progress Note - Progress Note for Day of Date: 03/07/17 - Subjective Subjective: IS BEING TREATED FOR BRONCHOPNEUMONIA AND SINUS DISEASE. TODAY, PATIENT IS ALERT AND ORIENTED, SITTING UP IN BED ON MORNING ROUNDS. SHE CONTINUES WITH PERSISTENT COUGH, NASAL CONGESTION, AND SHORTNESS OF BREATH, SLIGHTLY IMPROVED SINCE YESTERDAY. SHE IS ALSO NOTED WITH CHEST DISCOMFORT THAT IS WORSE WHEN SHE TAKES A DEEP BREATH OR COUGHS. ON EXAMINATION , HEART IS REGULAR IN RATE AND RHYTHM. BILATERAL LUNGS CONTINUE WITH SCATTERED WHEEZING THROUGHOUT. SHE IS CURRENTLY UTILIZING OXYGEN VIA NASAL CANNULA AT 2L/ MIN. ABDOMEN IS ROUND, SOFT, AND NON-TENDER WITH NORMAL BOWEL SOUNDS NOTED IN ALL QUADRANTS. SHE CONTINUES TO BE AFEBRILE. VITALS THIS MORNING ARE 98.2-93-20- 94%-135/62. LABS WERE OBTAINED THIS MORNING. SHE REMAINS HEMODYNAMICALLY STABLE TODAY. PRELIMINARY SPUTUM CULTURES REPORT GROWTH OF GRAM NEGATIVE RODS WITH NORMAL ROSA AT DAY 2 AND YEAST. URINE CULTURE REPORTS GROWTH OF E.COLI. A CHEST XRAY WAS OBTAINED THIS MORNING AND REPORTS IMPROVEMENT FROM YESTERDAY. SHE CONTINUES TO RECEIVE IV ANTIBIOTICS AND RESPIRATORY TREATMENTS. WE WILL START INVANZ 1GM IV DAILY FOR E.COLI IN URINE AND DIFLUCAN 200MG IV DAILY FOR YEAST IN SPUTUM. WE WILL ALSO START TORADOL 30MG IV Q6H FOR PLEURISY AND MUCOMYST BID IN [facility] [place]. OTHERWISE, WE WILL FOLLOW UP WITH AM LABS AND CONTINUE TO MONITOR PATIENT. - Past Medical Family Social History Past Med/Fam/Surg Hx: No changes since H&P Allergies: Allergies acetaminophen [From Tylenol] Allergy (Verified 03/04/17 00:46) aspirin Allergy (Verified 03/02/17 16:20) NSAIDS (Non-Steroidal Anti-Inflamma Allergy (Verified 03/02/17 16:20) - Review of Systems ROS: No change since H&P - Vital Signs and I&O's Vital Signs: Temperature 97.9 F Pulse Rate [Left Brachial] 89 Pulse Rate [Right Brachial] 86 Pulse Rate 85 Respiratory Rate 20 Blood Pressure [Left Arm] 136/61 Blood Pressure [Right Arm] 125/61 Blood Pressure 182/95 O2 Sat by Pulse Oximetry 92 Intake and Output: Intake & Output 03/05/17 03/06/17 03/07/17 03/08/17 11:59 11:59 11:59 11:59 Intake Total 3110 3067 1800 2040 Output Total 2049 Balance 3110 1017 1800 2039 - Physical Exam Oriented: Normal Eyes: Normal Ear: Normal Nose: Other (NASAL CONGESTION ) Throat: Normal Respiratory: Right, Left, Generalized, Wheezes Cardiovascular: Normal : Normal Auscultation: Bowel Sounds: Normal Palpation: Normal Tenderness: Normal Skin: Normal Musculoskeletal: Normal Psychiatric: Normal Mood Description: Calm Affect: Normal Speech Pattern: Clear, Appropriate - Laboratory and Diagnostics Result Diagrams: 03/07/17 05:00 03/07/17 05:00 Labs: 03/05/17 09:13 Sputum - Expectorated Sputum Sputum Culture - Preliminary 03/05/17 09:13 Sputum - Expectorated Sputum - Final 03/04/17 00:45 Blood Blood Culture - Final 03/05/17 07:59 Urine,Clean Catch Urine Culture - Final Escherichia Coli 03/04/17 00:40 Blood Blood Culture - Preliminary 03/02/17 19:33 Sputum - Expectorated Sputum Sputum Culture - Final 03/02/17 19:33 Sputum - Expectorated Sputum - Final 03/02/17 17:46 Blood Blood Culture - Preliminary 03/02/17 17:41 Blood Blood Culture - Preliminary Laboratory WBC 8.5 X10^3/uL (3.6-10.0) 03/07/17 05:00 RBC 4.33 X10^6/uL (3.5-5.4) 03/07/17 05:00 Hgb 13.2 g/dL (12.0-16.0) 03/07/17 05:00 Hct 38.4 % (36.0-47.0) 03/07/17 05:00 MCV 88.6 fL (80.0-100.0) 03/07/17 05:00 MCH 30.4 pg (27.0-34.0) 03/07/17 05:00 MCHC 34.3 g/dL (33.0-35.0) 03/07/17 05:00 RDW 12.9 % (11.6-16.5) 03/07/17 05:00 Plt Count 140 X10^3/uL (150.0-450.0) L 03/07/17 05:00 MPV 9.5 fL (7.4-11.0) 03/07/17 05:00 Neut % 42.7 % (42.0-75.0) 03/07/17 05:00 Lymph % 42.3 % (21.0-51.0) 03/07/17 05:00 [place] % 11.1 % (0.0-13.0) 03/07/17 05:00 Eos % 3.4 % (0.9-2.9) H 03/07/17 05:00 Baso % 0.5 % (0.2-1.0) 03/07/17 05:00 Neut # 3.6 x10^3/uL (2.2-4.8) 03/07/17 05:00 Lymph # 3.6 X10^3/uL (1.3-2.9) H 03/07/17 05:00 [place] # 0.9 x10^3/uL (0.3-0.8) H 03/07/17 05:00 Eos # 0.3 x10^3/uL (0.0-0.2) H 03/07/17 05:00 Baso # 0.0 X10^3/uL (0.0-0.1) 03/07/17 05:00 Absolute Nucleated RBC 0.1 /100WBC 03/07/17 05:00 Sodium 137 mmol/L (136-145) 03/07/17 05:00 Corrected Sodium 139 mmol/L (136-145) 03/07/17 05:00 Potassium 3.7 mmol/L (3.5-5.1) 03/07/17 05:00 Chloride 102 mmol/L (98-107) 03/07/17 05:00 Carbon Dioxide 23.8 mmol/L (21-32) 03/07/17 05:00 BUN 17 mg/dL (7-18) 03/07/17 05:00 Creatinine 0.86 mg/dL (0.55-1.02) 03/07/17 05:00 Est GFR (MDRD) Af Amer > 60 (>60) 03/07/17 05:00 Est GFR (MDRD) Non-Af > 60 (>60) 03/07/17 05:00 Glucose 183 mg/dL (65-99) H 03/07/17 05:00 POC Glucose (mg/dL) 126 mg/dL (65-99) H 03/07/17 11:23 Lactic Acid 1.3 mmol/L (0.4-2.0) 03/05/17 07:45 Calcium 9.0 mg/dL (8.5-10.1) 03/07/17 05:00 Corrected Calcium TNP 03/07/17 05:00 Magnesium 1.9 mg/dL (1.7-2.9) 03/05/17 04:50 Total Bilirubin 0.50 mg/dL (0.2-1.0) 03/07/17 05:00 AST 40 Units/L (15-37) H 03/07/17 05:00 ALT 59 Units/L (12-78) 03/07/17 05:00 Alkaline Phosphatase 70 Units/L (46-116) 03/07/17 05:00 Total Protein 7.4 g/dL (6.4-8.2) 03/07/17 05:00 Albumin 3.6 g/dL (3.4-5.0) 03/07/17 05:00 Globulin 3.8 g/dL (2.5-4.5) 03/07/17 05:00 Albumin/Globulin Ratio 0.9 Ratio (1.1-2.1) L 03/07/17 05:00 Specimen Type Clean catch urine 03/05/17 07:59 Urine Color Yellow (YELLOW) 03/05/17 07:59 Urine Appearance Clear (CLEAR) 03/05/17 07:59 Urine pH 5.0 (5.0 - 8.0) 03/05/17 07:59 Ur Specific [place] 1.015 (1.000-1.030) 03/05/17 07:59 Urine Protein Negative (NEGATIVE) 03/05/17 07:59 Urine Glucose (UA) Negative (NEGATIVE) 03/05/17 07:59 Urine Ketones Negative (NEGATIVE) 03/05/17 07:59 Urine Occult Blood Negative (NEGATIVE) 03/05/17 07:59 Urine Nitrite Negative (NEGATIVE) 03/05/17 07:59 Urine Bilirubin Negative (NEGATIVE) 03/05/17 07:59 Urine Urobilinogen Normal (NORMAL) 03/05/17 07:59 Ur Leukocyte Esterase 1+ (NEGATIVE) 03/05/17 07:59 Urine RBC Neg /HPF (NEGATIVE) 03/05/17 07:59 Urine WBC 0-1 /HPF (NEGATIVE) 03/05/17 07:59 Ur Squamous Epith Cells Negative /HPF (NEGATIVE) 03/05/17 07:59 Urine Bacteria Negative /HPF (NEGATIVE) 03/05/17 07:59 Ur Culture Indicated? No/not indicated 03/05/17 07:59 - Plan (1) Bronchopneumonia Status: Acute Plan: CONTINUE PNEUMONIA PROTOCOL, CONTINUE LEVAQUIN AND RESPIRATORY TX, MUCOMYST BID TO NEB TX, CONTINUE TO MONITOR LABS AND CHEST XRAY (2) Pleurisy Status: Acute Plan: TORADOL 30MG IV Q6H TID, MUCOMYST BID TO NEB [place], CONTINUE TO MONITOR (3) Sinus disease Status: Acute Plan: CONTINUE ASTELIN AND FLONASE NASAL SPRAY, CONTINUE LEVAQUIN 750MG IV DAILY , CONTINUE TO MONITOR (4) E. coli urinary tract infection Status: Acute Plan: INVANZ 1GM DAILY, CONTINUE TO MONITOR (5) Depression Status: Chronic Qualifiers: Depression Type: major depressive disorder Major depression recurrence: recurrent Active/Remission status: remission status unspecified Qualified Code(s): F33.9 - Major depressive disorder, recurrent, unspecified Plan: CONTINUE CELEXA, CONTINUE XANAX, CONTINUE TO MONITOR (6) Hypertension Status: Chronic Qualifiers: Hypertension type: essential hypertension Qualified Code(s): I10 - Essential (primary) hypertension Plan: CONTINUE LISINOPRIL, CONTINUE TO MONITOR (7) Diabetes Status: Chronic Qualifiers: Diabetes mellitus type: type 2 Diabetes mellitus complication status: without complication Diabetes mellitus nursing home insulin use: with nursing home use Qualified Code(s): E11.9 - Type 2 diabetes mellitus without complications ; Z79.4 - senior living (current) use of insulin; 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
[2017-03-07] MEDS: DIFLUCAN 200 MG IV PREMIX* 200 MG/100 ML BAG IV SCH (16:52)
[2017-03-07] MEDS ORDERED: INVANZ INJ 1 GM VIAL 1 GM in NS 100 ML IV + SPIKE MINIBAG* 100 ML IV SCH (21:00)
[2017-03-07] MEDS ORDERED: INVANZ INJ 1 GM VIAL 1 GM in NS 100 ML IV 100 ML IV SCH (21:18)
[2017-03-07] MEDS ORDERED: INVANZ INJ 1 GM VIAL ONE (21:20)
[2017-03-07] MEDS ORDERED: NS 100 ML IV 100 ML IV ONE (21:20)
[2017-03-07] MEDS: XANAX PO PRN (21:29)
[2017-03-07] MEDS: SNACK - Diabetic Appropriate PO SCH (21:29)
[2017-03-07] MEDS: TUSSIONEX PENNKINETIC SUSP PO PRN (21:30)
[2017-03-07] MEDS: ZANAFLEX PO SCH (21:30)
[2017-03-08] MEDS: DUONEB 0.5 MG/3 MG NEB SCH ×3 (00:58→08:51)
[2017-03-08] MEDS: NS 1/2 500 ML IV 500 ML IV SCH (03:46)
[2017-03-08] MEDS: TORADOL 30 MG VIAL IVP SCH ×2 (05:32→09:46)
[2017-03-08] MEDS ORDERED: NS 1/2 1000 ML IV 1,000 ML IV ONE (05:41)
[2017-03-08 06:17] LABS: BASOPHILS % (AUTO) 0.5 % (0.2-1.0); EOSINOPHILS # (AUTO) 0.2 x10^3/uL (0.0-0.2); EOSINOPHILS % (AUTO) 4.1 % (0.9-2.9); HEMATOCRIT 36.2 % (36.0-47.0); HEMOGLOBIN 12.7 g/dL (12.0-16.0); LYMPHOCYTES # (AUTO) 2.8 X10^3/uL (1.3-2.9); LYMPHOCYTES % (AUTO) 48.3 % (21.0-51.0); MEAN CORPUSCULAR HEMOGLOBIN 30.8 pg (27.0-34.0); MEAN CORPUSCULAR HGB CONC 34.9 g/dL (33.0-35.0); MEAN CORPUSCULAR VOLUME 88.3 fL (80.0-100.0); MEAN PLATELET VOLUME 9.4 fL (7.4-11.0); MONOCYTES # (AUTO) 0.5 x10^3/uL (0.3-0.8); MONOCYTES % (AUTO) 8.7 % (0.0-13.0); NEUTROPHILS # (AUTO) 2.3 x10^3/uL (2.2-4.8); NEUTROPHILS % (AUTO) 38.4 % (42.0-75.0); PLATELET COUNT 113 X10^3/uL (150.0-450.0); RED CELL DISTRIBUTION WIDTH 12.6 % (11.6-16.5); WHITE BLOOD COUNT 5.9 X10^3/uL (3.6-10.0)
[2017-03-08 06:24] LABS: ALANINE AMINOTRANSFERASE 50 Units/L (12-78); ALBUMIN 3.2 g/dL (3.4-5.0); ALKALINE PHOSPHATASE 65 Units/L (46-116); ASPARTATE AMINO TRANSFERASE 32 Units/L (15-37); BLOOD UREA NITROGEN 17 mg/dL (7-18); CALCIUM 8.9 mg/dL (8.5-10.1); CARBON DIOXIDE 26.5 mmol/L (21-32); CHLORIDE 104 mmol/L (98-107); COR CA(FOR HYPOALB) 9.5 mg/dL (8.5-10.1); COR NA(FOR HYPERGLY) 140 mmol/L (136-145); CREATININE 0.89 mg/dL (0.55-1.02); SODIUM 139 mmol/L (136-145); TOTAL PROTEIN 6.7 g/dL (6.4-8.2); eGFR BLACK RACES > 60 (>60); eGFR NON BLACK RACES > 60 (>60)
[2017-03-08] MEDS ORDERED: GLUCOPHAGE ONE (07:16)
--- NOTE | 2017-03-08 07:24 | RAD ---
Examination: Portable AP chest History: SOB Comparison reference 03/07/2017 Findings: Continued normal heart size with clear lungs and pleural spaces. Impression: No acute findings. Reported By:
[2017-03-08 08:16] VITALS: BP 118/56
[2017-03-08] MEDS: DIFLUCAN 200 MG IV PREMIX* 200 MG/100 ML BAG IV SCH ×2 (08:17→09:44)
[2017-03-08] MEDS: SINGULAIR TAB 10 MG PO SCH (08:17)
[2017-03-08] MEDS: LEVAQUIN PREMIX IV 750 MG 750 MG/150 ML BAG IV SCH (08:17)
[2017-03-08] MEDS: MOBIC TAB 15 MG PO SCH (08:18)
[2017-03-08] MEDS: AUGMENTIN 875 MG/125 MG TAB PO SCH ×2 (08:18→11:15)
[2017-03-08] MEDS: GLUCOPHAGE PO SCH (08:18)
[2017-03-08] MEDS: CELEXA PO SCH (08:19)
[2017-03-08] MEDS: ASTELIN NASAL SPRAY ENOSTRIL SCH (08:19)
[2017-03-08] MEDS: ZESTRIL TAB 5 MG PO SCH (08:19)
[2017-03-08] MEDS: ROBITUSSIN DM PO SCH (08:19)
[2017-03-08] MEDS: FLONASE NASAL SPRAY ENOSTRIL SCH (08:19)
[2017-03-08] MEDS: MUCOMYST 20% 200 MG/ML NEB SCH (08:52)
== END 2017-03-08 11:05 | disposition home or self-care (01) | DRG 194 ==
LOC: MED/SURG 15:02 → OBSVTOIN 03-04 15:00
PROVIDERS: ADMIT Internal Medicine; ATTEND Internal Medicine
DX: J18.0 Bronchopneumonia, unspecified organism (principal); R06.02 Shortness of breath; R51 Headache; J01.80 Other acute sinusitis; F33.8 Other recurrent depressive disorders; N39.0 Urinary tract infection, site not specified; B96.29 Other Escherichia coli [E. coli] as the cause of diseases classified elsewhere; Z79.4 Long term (current) use of insulin; I10 Essential (primary) hypertension; R09.1 Pleurisy
CPT/HCPCS: 36415; 70486; 71045; 71046; 80053; 81001; 83605; 83735; 84132; 85025; 87040; 87070; 87077; 87086; 87088; 87186; 87205; 94640; 94760; A4222; G0378; J1335; J1450; J1885; J1956; J7608; J7620